=== PATIENT | female | born 1990 | race Caucasian/White ===

== ENCOUNTER 2019-07-08 21:01 | Day surgery (SDC) | payer OTHER ==
[2019-07-08 21:33] VITALS: BMI 29.4
--- NOTE | 2019-07-08 22:10 | PDOC.LDHP ---
Labor and Delivery H&P Allergies/Adverse Reactions: Allergies Allergy/AdvReac Type Severity Reaction Status Date / Time No Known Allergies Allergy Verified 04/29/13 19:48
[2019-07-08] MEDS ORDERED: hydrALAZINE 20 MG/ML VIAL SLOW IVP PRN (22:11)
--- NOTE | 2019-07-08 23:27 | PDOC.FPROB ---
FMR OB H&P: HPI - History of Present Illness Chief Complaint: contractions Indentification: History of Present Illness: 29YO @ 38.6 WGA (MEGAN 07/16/19) who presented to L&D for regular, more intense contractions that began around 17:30 tonight. Reports around that time they were about 3-5 minutes apart for a while but then spaced out to about 10 minutes apart. However, over the course of the night they then began to come more frequently about 3-5 minutes apart again so she decided to come to L&D for further evaluation. Reports she was checked in the office by Dr. Garrett yesterday and was and has had some scant brown discharge since the check and increased vaginal pressure but no vaginal bleeding or LOF. Endorses regular movement. Primary Care Physician: Abby Garrett FMR OB H&P: Current - Care : 1 Para: 0 Gestational age: 38.6 Due date: Course/Complications: none - OB Labs GBS: negative FMR OB H&P: History - Past Medical History PMH: chronic back pain - OB History OB History: none - Surgical History Sx History: appe and tonsillectomy - Social History Social History: No TAD. Works as a early years teacher. - Family History Family History: non-contributory FMR OB H&P: Medications - Current Home Medications: Medication Instructions Recorded Confirmed Type Vitamin 1 tablet PO DAILY 07/08/19 07/09/19 History Allergies/Adverse Reactions: Allergies Allergy/AdvReac Type Severity Reaction Status Date / Time No Known Allergies Allergy Verified 04/29/13 19:48 FMR OB H&P: ROS - Review of Systems General: denies: fever/chills, weight/appetite/sleep changes Eyes: denies: vision changes, double vision ENT: denies: nasal congestion, rhinorrhea, sore throat Cardiovascular: denies: chest pain, palpitation, edema Respiratory: reports: cough. denies: shortness of breath Gastrointestinal: reports: nausea. denies: vomiting, diarrhea, constipation Genitourinary (Female): reports: vaginal discharge, contractions, vaginal pressure. denies: dysuria, hematuria, vaginal pain, vaginal bleeding Musculoskeletal: denies: pain, arthritis/arthralgias Neurologic: denies: syncope, headache Integumentary: denies: itching, rash Breast: denies: skin changes, pain/tenderness Endocrine: denies: polydipsia, polyuria Psychological: denies: depression, anxiety FMR OB H&P: Vital Signs - Maternal Vital signs: BP: 135/74 HR: 82 - Heart Tones Baseline: 120 Variability: moderate Acceleration: present Deceleration: early Category: category 2 [place] contractions every: every 2-5 minutes FMR OB H&P: Physical Exam - Physical Exam General: NAD, awake, alert and oriented HEENT: normocephalic and atraumatic, grossly normal vision, grossly normal hearing Neck: supple, trachea midline Heart: RRR, normal S1/S2, no murmurs/rubs/gallops, pulses present, no edema General: CTAB, no respiratory distress, good air movement, no rales/rhonchi, no wheezing, no retractions Abdomen: soft, gravid, non-tender, bowel sound present Musculoskeletal: normal gait and station, pulses present, FROM in all four extremities Skin: no rash, good tugor, no jaundice Lymphatic: no unusual bruising or bleeding, no purpura, no petechia Psychiatric: intact recent and remote memory, good judgement and insight, normal mood and affect - Pelvic Exam Vulva: normal hair distribution, appropriate vikki stage, no discharge, no blood SVE: Membranes: intact Presentation: cephalic FMR OB H&P: A/P - Problem List (1) Term Current Visit: Yes Status: Acute Code(s): Z34.90 - ENCNTR FOR SUPRVSN OF NORMAL , UNSP, UNSP TRIMESTER Disposition: 29YO @ 38.6 WGA (MEGAN 07/16/19) who presents to L&D for regular painful contractions that began @ ~17:30 this evening. Term with contractions, r/o labor: - SVE yesterday in office & check on arrival was . - FHTs reassuring w/ baseline in the 120s & moderate reactivity with multiple accels but some early decelerations as well. - VS stable. - Will monitor for ~2 hours and recheck cervix. Dispo: Will continue monitoring and recheck cervix in ~ 2 hours to assess for cervical change c/w labor. Discussion: Date/Time: 07/08/19 0942 This H&P was discussed with Dr. Montanez who agrees with the above documentation and plan. Addendum - Attending - Attending Attestation Date/Time: 07/11/19 7901 I personally evaluated the patient and discussed the management with Dr. Bro I agree with the History, Examination, Assessment and Plan documented above with any addition or exceptions noted below. vitals 135/74 82 20 sve 3/70/-2 Pt without evidence of cervical change on recheck and discharged home
--- NOTE | 2019-07-09 00:03 | PDOC.BPN ---
- Brief Progress Note 29YO @ 38.6 WGA (MEGAN 07/16/19) who presents to L&D for regular painful contractions that began @ ~17:30 this evening. Term with contractions, r/o labor: - SVE yesterday in office & check on arrival was . - FHTs reassuring w/ baseline in the 120s & moderate reactivity with multiple accels but some early decelerations as well. - VS stable. - Recheck @ ~23:45 was unchanged from check on arrival and contractions have become less frequent. Dispo: Will discharge home with labor precautions.
== END 2019-07-09 00:05 | disposition home or self-care (01) ==
LOC: L&D/OP 21:01
PROVIDERS: ATTEND Student in an Organized Health Care Education/Training Program
DX: O47.1 False labor at or after 37 completed weeks of gestation (principal); Z3A.38 38 weeks gestation of pregnancy
CPT/HCPCS: 99283

== ENCOUNTER 2019-07-09 03:36 | Inpatient (IN) | payer OTHER ==
--- NOTE | 2019-07-09 04:04 | PDOC.LDHP ---
Labor and Delivery H&P Chief complaint: contractions HPI: 29YO @ 39.0 WGA (MEGAN 07/16/19) who presented to L&D for regular, more intense contractions persisted since being discharged from L&D earlier this morning. Reports that since leaving L&D her contractions became consistently no more than 5 minutes apart and became so painful that she started vomiting so her told her they were going back to the hospital. Endorses regular movement. Denies any LOF, bleeding or abnormal discharge. Current gestational age (weeks): 39 Due date: 07/16/19 Grav: 1 Para: 0 OB History Details: uncomplicated first Current complications: none Abnormal US findings: No Past Medical History: chronic back pain Current medications: pre-emir vitamins Previous surgical history: appendectomy, other (tonsillectomy) Allergies/Adverse Reactions: Allergies Allergy/AdvReac Type Severity Reaction Status Date / Time No Known Allergies Allergy Verified 04/29/13 19:48 Social history: none - Physical Exam Vital signs reviewed and normal: yes General: breathing through contractions, other (uncomfortable 2/2 contraction pain) Lungs: nonlabored breathing Abdomen: gravid FHT: category 1, variability present [place] contractions every: 5 minutes - Vaginal Exam cm dilated: 5 Effacement: 90% Station: 0 - OB Labs Blood type: A RH: positive Antibody Screen: negative HIV: negative RPR: negative HEPSAg: negative 1 hour GCT: negative GBS: negative Urine drug screen: negative Rubella: immune - Assessment L&D Assessment: term patient in labor 29YO @ 39 WGA presenting for regular painful contractions who was determined to be in labor. - Plan Plan: admit to L&D -: Term in labor: - SVE on arrival compared to earlier this morning. Hannah regularly ~q5 minutes & very painful. FHTs reassuring with baseline in 140s, variability & accels present, Cat 1 tracing. - Desires epidural, anesthesia consult placed. - Will admit to L&D for routine intrapartum care. Dispo: Will admit to L&D for monitoring & management for an anticipated term . Addendum - Attending - Attending Attestation Date/Time: 07/11/19 0842 I personally evaluated the patient and discussed the management with Dr. Bro I agree with the History, Examination, Assessment and Plan documented above with any addition or exceptions noted below. PT being admitted to Dr Stewart
[2019-07-09] MEDS ORDERED: Ondansetron PF 4 MG/2 ML Vial IVP PRN ×3 (04:09→11:56)
[2019-07-09] MEDS ORDERED: Ibuprofen 800 MG TAB PO PRN (04:09)
[2019-07-09] MEDS ORDERED: Lidocaine 1% (PF) 30 ML VIAL SC PRN (04:09)
[2019-07-09] MEDS ORDERED: Methylergonovine 0.2 MG/ML VIAL IM PRN (04:09)
[2019-07-09] MEDS ORDERED: Butorphanol Tartrate 1 MG/ML VIAL SLOW IVP PRN (04:09)
[2019-07-09] MEDS ORDERED: Promethazine HCl 25 MG/ML VIAL IM PRN ×2 (04:09→05:57)
[2019-07-09] MEDS ORDERED: HYDROcodone/Acetaminophen 5/325 mg Tablet PO PRN ×3 (04:09→11:56)
[2019-07-09] MEDS ORDERED: Carboprost 250 MCG/ML AMP IM PRN (04:09)
[2019-07-09] MEDS ORDERED: hydrALAZINE 20 MG/ML VIAL SLOW IVP PRN ×2 (04:09→11:56)
[2019-07-09] MEDS ORDERED: Diphenoxylate HCl/Atropine Tablet PO PRN ×2 (04:09)
[2019-07-09] MEDS ORDERED: Misoprostol 200 MCG TAB PR PRN (04:09)
[2019-07-09] MEDS ORDERED: NS / Oxytocin 40 units/1000ml 1,000 ML IV PRN (04:09)
[2019-07-09] MEDS ORDERED: Docusate 100 MG CAP PO PRN (04:09)
[2019-07-09] MEDS: Lactated Ringer's 1,000 ML IV SCH ×2 (04:10→07:08)
[2019-07-09 04:30] LABS: Hemoglobin 13.4 g/dL (12.0-16.0); Mean Corpuscular HGB CONC 34.1 g/dL (32.0-36.0); Mean Corpuscular Hemoglobin 29.2 pg (27.0-31.0); Mean Corpuscular Volume 85.6 fL (78.0-98.0); Mean Platelet Volume 8.6 fL (7.4-10.4); Platelet Count 164 thou/uL (130-400); RBC Distribution Width 13.2 % (11.5-14.5); Red Blood Cell (RBC) Count 4.59 mill/uL (4.20-5.40); White Blood Cell (WBC) Count 16.3 thou/uL (4.8-10.8)
[2019-07-09 05:08] LABS: Syphilis Antibody Nonreactive (Nonreactive); Syphilis Antibody Index 0.04 S/CO (<1.00 Non-Reactive)
[2019-07-09 05:09] LABS: HBSAg Index 0.18 S/CO (0-0.99); Hep B Surf Ag Non-Reactive S/CO (NonReactive)
[2019-07-09] MEDS ORDERED: Fentanyl 4 mcg/Bup 0.1% Cadd 100 ML ONE (05:17)
[2019-07-09] MEDS ORDERED: diphenhydrAMINE 50 MG/ML VIAL IVP PRN (05:57)
[2019-07-09] MEDS ORDERED: Acetaminophen 325 MG TAB PO PRN (05:57)
[2019-07-09] MEDS ORDERED: Lactated Ringer's 500 ML IV PRN (05:57)
[2019-07-09] MEDS ORDERED: ePHEDrine/0.9% NaCl/PF SYRINGE 50 mg/10 ml SLOW IVP PRN (05:57)
[2019-07-09] MEDS ORDERED: Naloxone HCl 0.4 mg/ml Vial IVP PRN ×2 (05:57)
[2019-07-09] MEDS ORDERED: Fentanyl 4 mcg/Bupivacaine 0.1% Cassette 100 ML EPIDURAL SCH (06:00)
[2019-07-09] MEDS ORDERED: Communication Order-Pharmacy FS SCH (06:00)
[2019-07-09 06:11] VITALS: BMI 29.4
[2019-07-09] MEDS ORDERED: Bupivacaine 0.25% HCL 30 ML VIAL ONE (09:39)
[2019-07-09] MEDS: NS / Oxytocin 40 units/1000ml 1,000 ML IV SCH ×2 (10:55→13:56)
--- NOTE | 2019-07-09 11:19 | PDOC.OPDEL ---
OB Operative/Delivery Note Delivery Dr/Surgeon: Tami Assist: n/a Pre-Delivery Diagnosis: active labor Procedure/Post Delivery Dx: spontaneous vaginal delivery Weeks gestation: 39 Anesthesia: epidural - Findings A Sex: male - 1 min: 8 - 5 min: 9 - Additional Findings/Plan Placenta delivered: spontaneous Repaired Obstetrical Laceration: periurethral (bilateral, repaired with 3-0 vicryl for hemostasis) Estimated blood loss: 300cc Post delivery plan: routine recovery
[2019-07-09] MEDS ORDERED: Bisacodyl 10 MG SUPP PR PRN (11:56)
[2019-07-09] MEDS ORDERED: Milk Of Magnesia 30 ML UDCUP PO PRN (11:56)
[2019-07-09] MEDS ORDERED: Benzocaine-Menthol 82.5 ML CAN TOP PRN (11:56)
[2019-07-09] MEDS ORDERED: diphenhydrAMINE 25 MG CAP PO PRN (11:56)
[2019-07-09] MEDS ORDERED: Lanolin Ointment 7 GM TUBE TOP PRN (11:56)
[2019-07-09] MEDS ORDERED: Preparation H Ointment 28 GM TUBE PR PRN (11:56)
[2019-07-09] MEDS: Ibuprofen 800 MG TAB PO SCH (15:01)
[2019-07-09] MEDS: Ferrous Sulfate 325 MG TAB PO SCH (17:33)
[2019-07-09] MEDS: Docusate Calcium (SURFAK) 240 MG CAP PO SCH (21:12)
[2019-07-10] MEDS: Ibuprofen 800 MG TAB PO SCH ×4 (00:14→23:18)
--- NOTE | 2019-07-10 07:44 | PRG ---
DATE OF SERVICE: 07/10/2019 TIME OF SERVICE: 0656 hours. SUBJECTIVE: The patient is resting comfortably. She is a G1, P1, status post spontaneous vaginal delivery in the a.m. of 07/09. She reports breast-feeding is going well and is resting comfortably. OBJECTIVE: VITAL SIGNS: T-max 98.0, temperature 98.0, pulse 84, respirations 18, and blood pressure 113/64. HEENT: Within normal limits. LUNGS: Clear to auscultation bilaterally. HEART: Regular rate and rhythm. ABDOMEN: Her fundus is firm. Normal lochia. EXTREMITIES: Without clubbing, cyanosis, or edema. IMPRESSION: day #1 for a primigravida, who delivered spontaneously at term. PLAN: Routine care a.m., on 07/[address] Abby Garrett. Job ID: [id number]
[2019-07-10] MEDS ORDERED: Sodium Chloride 0.9% 10 ML ONE (08:07)
[2019-07-10] MEDS: Docusate Calcium (SURFAK) 240 MG CAP PO SCH ×2 (08:29→21:58)
[2019-07-10] MEDS: Ferrous Sulfate 325 MG TAB PO SCH ×2 (08:36→17:15)
[2019-07-10] MEDS: Prenatal Vitamin 1 TAB PO SCH ×2 (08:36→21:57)
[2019-07-10] MEDS ORDERED: Adacel (T-DAP) 0.5 ML SYRINGE IM ONE (09:00)
[2019-07-11] MEDS: Ibuprofen 800 MG TAB PO SCH ×2 (08:02→17:31)
[2019-07-11] MEDS: Docusate Calcium (SURFAK) 240 MG CAP PO SCH (08:02)
[2019-07-11] MEDS: Prenatal Vitamin 1 TAB PO SCH (08:02)
[2019-07-11 08:18] VITALS: BP 113/63; TEMP 97.6
--- NOTE | 2019-07-11 10:32 | PDOC.PP ---
Post Progress Note Post Day #: 2 PO intake tolerated: yes Flatus: yes Ambulation: yes Vital Signs (12 hours) Temp Pulse Resp BP Pulse Ox 07/11/19 08:18 97.6 F 81 20 113/63 98 Weight Weight 177 lb - Physical Examination General: NAD Respiratory: non-labored breathing Abdominal: no distention, appropriately TTP Fundus firm & at: umb-2 Skin: no rash Neurological: no gross focal deficits Psychiatric: normal affect Result Diagrams: 07/09/19 04:18 Additional Labs: Post Labs Blood Type A POSITIVE 07/09/19 05:52 Hep Bs Antigen Non-Reactive S/CO (NonReactive) 07/09/19 04:18 - Assessment/Plan PPD2 s/p TSVD VSSAF Doing well, lochia < menses Rh pos RImm DC home FU 6w
[2019-07-11] MEDS: HYDROcodone/Acetaminophen 5/325 mg Tablet PO PRN ×2 (11:59→17:27)
[2019-07-11] MEDS: Ferrous Sulfate 325 MG TAB PO SCH ×2 (17:41→17:42)
== END 2019-07-11 18:35 | disposition home or self-care (01) | DRG 807 ==
LOC: L&D/OP 03:36 → L&D 04:18 → 3SW 17:08
PROVIDERS: ADMIT Student in an Organized Health Care Education/Training Program; ATTEND Student in an Organized Health Care Education/Training Program
PROC: 10E0XZZ Delivery of Products of Conception, External Approach (ICD-10-PCS; principal; 2019-07-09)
PROC: 0UQMXZZ Repair Vulva, External Approach (ICD-10-PCS; 2019-07-09)
DX: O71.82 Other specified trauma to perineum and vulva (principal); Z37.0 Single live birth; Z3A.39 39 weeks gestation of pregnancy
CPT/HCPCS: 36415; 51702; 85027; 86780; 86850; 86900; 86901; 87340; 99285; S0020

== ENCOUNTER 2022-12-15 10:14 | Outpatient (CLI) | payer BC ==
[2022-12-15 11:06] LABS: #Eosinphils 0.2 10x3/uL (0.0-0.5); #Monocytes 0.4 10x3/uL (0.0-1.1); #Neutrophils 5.1 10x3/uL (1.5-8.4); %Basophils 0.5 % (0.0-2.0); %Eosinophils 2.6 % (0.0-6.0); %Lymphocytes 26.1 % (18.0-47.0); %Monocytes 4.9 % (0.0-10.0); %Neutrophils 65.6 % (40.0-75.0); Hemoglobin 14.3 g/dL (12.0-15.5); Mean Corpuscular HGB CONC 34.1 g/dL (32.0-36.0); Mean Corpuscular Hemoglobin 29.3 pg (27.0-33.0); Mean Corpuscular Volume 85.9 fl (81.6-98.3); Mean Platelet Volume 9.8 fl (7.4-10.4); Platelet Count 263 10x3/uL (150-450); Red Blood Cell (RBC) Count 4.88 10x6/uL (3.90-5.03); White Blood Cell (WBC) Count 7.8 10x3/uL (3.5-10.5)
[2022-12-15 11:25] LABS: BHCG - Serum Negative (NEGATIVE); Pregs Control Background? CLEAR/WHITE (CLR/WHITE); Pregs Control Bar Appear? YES (CONTROL BAR)
[2022-12-15 11:33] LABS: ALT (SGPT) 23 U/L (8-55); AST (SGOT) 18 U/L (5-34); Albumin 4.9 g/dL (3.5-5.0); Alkaline Phosphatase 103 U/L (40-110); Anion Gap 16 mmol/L (10-20); BUN (Urea Nitrogen) 15 mg/dL (7.0-18.7); Bilirubin, Direct 0.2 mg/dL (0.1-0.3); Bilirubin, Total 0.6 mg/dL (0.2-1.2); Calc. Creatinine Clearance 0 mL/min (70-130); Calcium 9.4 mg/dL (7.8-10.44); Carbon Dioxide 22 mmol/L (22-29); Chloride 106 mmol/L (98-107); Estimated GFR 108; Glucose 82 mg/dL (70-105); Potassium 3.7 mmol/L (3.5-5.1); Protein, Total 7.6 g/dL (6.0-8.3); Sodium 140 mmol/L (136-145)
== END 2022-12-15 10:15 | disposition home or self-care (01) ==
LOC: LABBT 10:14
PROVIDERS: ATTEND Surgery
DX: Z01.812 Encounter for preprocedural laboratory examination (principal); K81.9 Cholecystitis, unspecified
CPT/HCPCS: 80048; 80076; 84703; 85025